=== PATIENT | female | born 1990 | race Caucasian/White ===

== ENCOUNTER 2018-06-05 19:41 | Outpatient (CLI) | payer MEDICAID ==
[2018-06-05 21:12] LABS: ADD MAN DIFF? NO
[2018-06-05 21:14] LABS: WHITE BLOOD COUNT 9.7 10^3/ul (4.8-10.8)
[2018-06-05 21:14] LABS: BASOPHILS % 0.1 % (0.0-2.0); EOSINOPHILS # 0.1 10^3/ul (0.0-0.5); EOSINOPHILS % 1.2 % (0.0-7.0); HEMATOCRIT 33.6 % (37.0-47.0); HEMOGLOBIN 11.5 g/dl (12.0-16.0); LYMPHOCYTES # 2.1 10^3/ul (0.8-2.9); LYMPHOCYTES % 21.5 % (15.0-51.0); MEAN CORPUSCULAR HEMOGLOBIN 29.1 pg (29.0-33.0); MEAN CORPUSCULAR HGB CONC 34.2 g/dl (32.0-37.0); MEAN CORPUSCULAR VOLUME 85.1 fl (82.0-101.0); MEAN PLATELET VOLUME 9.3 fl (7.4-10.4); MONOCYTE # 0.5 10^3/ul (0.3-0.9); MONOCYTES % 5.4 % (0.0-11.0); NEUTROPHIL # 6.9 10^3/ul (1.6-7.5); NEUTROPHILS % 71.2 % (39.0-77.0); PLATELET COUNT 183 10^3/UL (140-415); RED BLOOD COUNT 3.95 10^6/ul (4.20-5.40); RED CELL DISTRIBUTION WIDTH 13.1 % (11.5-14.5)
[2018-06-05] MEDS: LACTATED RINGER'S 1,000 ML IV ×2 (21:41→22:30)
[2018-06-05 21:43] LABS: ADD UMIC YES; UR AMORPHOUS CRYSTAL FEW /HPF (NONE SEEN); UR ASCORBIC ACID NEGATIVE (NEGATIVE); UR BACTERIA FEW /HPF (NONE SEEN); UR BILIRUBIN (Dip) NEGATIVE (NEGATIVE); UR BLOOD (Dip) NEGATIVE (NEGATIVE); UR CLARITY CLOUDY (CLEAR); UR COLOR YELLOW (YELLOW); UR GLUCOSE (Dip) NEGATIVE (NEGATIVE); UR KETONES (Dip) NEGATIVE (NEGATIVE); UR LEUKOCYTE ESTERASE (Dip) 2+ Leu/ul (NEGATIVE); UR MUCUS FEW /HPF (NONE SEEN); UR NITRITE (Dip) NEGATIVE (NEGATIVE); UR RBC 1 /HPF (0-5); UR SPECIFIC GRAVITY (Dip) 1.017 (1.003-1.030); UR SQUAMOUS EPITHELIAL CELL FEW /HPF (FEW); UR TOTAL PROTEIN (Dip) NEGATIVE (NEGATIVE); UR UROBILINOGEN (Dip) NEGATIVE (NEGATIVE); UR WBC 0 /HPF (0-5)
[2018-06-05] MEDS: TERBUTALINE 1 MG/ML INJ SC (21:49)
== END 2018-06-05 23:58 | disposition home or self-care (01) ==
LOC: OBT 19:41 → L-D 19:43
DX: O26.852 Spotting complicating pregnancy, second trimester (principal); Z3A.27 27 weeks gestation of pregnancy
CPT/HCPCS: 36415; 76817; 76818; 81001; 85025; 86850; 86900; 86901; 87086; 96360; 96361

== ENCOUNTER 2018-07-23 21:02 | Inpatient (IN) | payer MEDICAID ==
[2018-07-23] MEDS ORDERED: MAGNESIUM SULFATE 4 GM/100 ML 100 ML (21:49)
[2018-07-23] MEDS ORDERED: TERBUTALINE 1 MG/ML INJ SC (22:00)
[2018-07-23] MEDS ORDERED: METHYLERGONOVINE 0.2 MG INJ IM (22:00)
[2018-07-23] MEDS ORDERED: OXYTOCIN 30 UNITS/LR 500 ML IV ×2 (22:00)
[2018-07-23] MEDS ORDERED: CARBOPROST 250 MCG INJ IM (22:00)
[2018-07-23] MEDS ORDERED: CEFAZOLIN 2 GM/50 ML (PMX) 50 ML IVPB (22:00)
[2018-07-23] MEDS ORDERED: MISOPROSTOL 200 MCG TAB PR (22:00)
[2018-07-23] MEDS: LACTATED RINGER'S 1,000 ML IV (22:08)
[2018-07-23] MEDS: MAGNESIUM SULFATE 4 GM/100 ML 100 ML IVPB (22:13)
[2018-07-23 22:18] LABS: ADD MAN DIFF? NO
[2018-07-23 22:20] LABS: BASOPHILS % 0.2 % (0.0-2.0); EOSINOPHILS # 0.1 10^3/ul (0.0-0.5); EOSINOPHILS % 0.9 % (0.0-7.0); HEMATOCRIT 33.4 % (37.0-47.0); HEMOGLOBIN 11.6 g/dl (12.0-16.0); LYMPHOCYTES % 16.6 % (15.0-51.0); MEAN CORPUSCULAR HEMOGLOBIN 28.9 pg (29.0-33.0); MEAN CORPUSCULAR HGB CONC 34.7 g/dl (32.0-37.0); MEAN CORPUSCULAR VOLUME 83.3 fl (82.0-101.0); MEAN PLATELET VOLUME 10.6 fl (7.4-10.4); MONOCYTE # 0.7 10^3/ul (0.3-0.9); NEUTROPHIL # 9.3 10^3/ul (1.6-7.5); NEUTROPHILS % 75.5 % (39.0-77.0); PLATELET COUNT 160 10^3/UL (140-415); RED BLOOD COUNT 4.01 10^6/ul (4.20-5.40); RED CELL DISTRIBUTION WIDTH 12.7 % (11.5-14.5)
[2018-07-23 22:20] LABS: WHITE BLOOD COUNT 12.3 10^3/ul (4.8-10.8)
[2018-07-23] MEDS: MAGNESIUM SULFATE 20 GM/500 ML 500 ML IV (22:36)
[2018-07-23 22:40] LABS: PROTIME 12.3 Sec (11.9-14.9)
[2018-07-23 22:41] LABS: PARTIAL THROMBOPLASTIN TIME 29.7 Sec (23.0-35.0)
[2018-07-23] MEDS: BETAMET NA PHOS/AC(6 MG/ML) 2 ML INJ SYG IM (23:03)
[2018-07-23 23:58] LABS: AMPHETAMINE/METHAMPHETAMINE Negative (NEGATIVE); BENZODIAZEPINES Negative (NEGATIVE); CANNABINOIDS Negative (NEGATIVE); COCAINE Negative (NEGATIVE); OPIATES Negative (NEGATIVE)
[2018-07-24] MEDS: DEXTROSE 5%-LR 1,000 ML IV ×2 (00:07→12:05)
[2018-07-24 01:00] LABS: BARBITURATES Negative (NEGATIVE)
[2018-07-24] MEDS: MAGNESIUM SULFATE 20 GM/500 ML 500 ML IV ×2 (09:01→18:52)
[2018-07-24 09:47] LABS: MAGNESIUM 4.4 mg/dl (1.7-2.5)
[2018-07-24] MEDS: LACTATED RINGER'S 1,000 ML IV ×2 (11:27→15:53)
[2018-07-24] MEDS: BETAMET NA PHOS/AC(6 MG/ML) 2 ML INJ SYG IM (11:31)
[2018-07-24 14:58] LABS: RAPID PLASMA REAGIN NONREACTIVE (NR)
[2018-07-24 15:18] LABS: MAGNESIUM 5.3 mg/dl (1.7-2.5)
[2018-07-24 19:31] LABS: MAGNESIUM 5.2 mg/dl (1.7-2.5)
[2018-07-25] MEDS: LACTATED RINGER'S 1,000 ML IV ×3 (05:17→22:40)
[2018-07-25] MEDS: MAGNESIUM SULFATE 20 GM/500 ML 500 ML IV (05:18)
[2018-07-25 06:59] LABS: MAGNESIUM 5.1 mg/dl (1.7-2.5)
[2018-07-25 12:12] LABS: MAGNESIUM 4.8 mg/dl (1.7-2.5)
[2018-07-26] MEDS: LACTATED RINGER'S 1,000 ML IV ×4 (06:47→21:20)
[2018-07-26] MEDS: DOCUSATE SODIUM 100 MG CAP PO (09:00)
[2018-07-26] MEDS: PRENATAL VITAMIN PO (11:56)
[2018-07-26] MEDS: FERROUS SULFATE (EC) 325 MG TAB PO (11:56)
[2018-07-26 17:45] LABS: HEPATITIS B SURFACE ANTIGEN NEGATIVE (NEGATIVE)
[2018-07-26] MEDS: MAGNESIUM SULFATE 4 GM/100 ML 100 ML IV (19:00)
[2018-07-27] MEDS: NIFEdipine (XL) 30 MG TAB PO ×4 (00:09→17:59)
[2018-07-27] MEDS: LACTATED RINGER'S 1,000 ML IV ×3 (04:38→22:15)
[2018-07-27] MEDS: DOCUSATE SODIUM 100 MG CAP PO (09:01)
[2018-07-27] MEDS: FERROUS SULFATE (EC) 325 MG TAB PO (09:01)
[2018-07-27] MEDS: PRENATAL VITAMIN PO (09:01)
[2018-07-28] MEDS: NIFEdipine (XL) 30 MG TAB PO ×3 (00:14→12:00)
[2018-07-28] MEDS: LACTATED RINGER'S 1,000 ML IV ×4 (05:52→18:56)
[2018-07-28] MEDS: FERROUS SULFATE (EC) 325 MG TAB PO (09:01)
[2018-07-28] MEDS: PRENATAL VITAMIN PO (09:02)
[2018-07-28] MEDS: DOCUSATE SODIUM 100 MG CAP PO (09:02)
[2018-07-28] MEDS ORDERED: MISOPROSTOL 200 MCG TAB PR ×2 (12:30→18:30)
[2018-07-28] MEDS ORDERED: OXYTOCIN 30 UNITS/LR 500 ML IV ×4 (12:30→18:30)
[2018-07-28] MEDS ORDERED: METHYLERGONOVINE 0.2 MG INJ IM ×2 (12:30→18:30)
[2018-07-28] MEDS ORDERED: CARBOPROST 250 MCG INJ IM ×2 (12:30→18:30)
[2018-07-28 13:29] LABS: ADD MAN DIFF? NO
[2018-07-28 13:31] LABS: WHITE BLOOD COUNT 13.7 10^3/ul (4.8-10.8)
[2018-07-28 13:31] LABS: BASOPHILS % 0.2 % (0.0-2.0); EOSINOPHILS # 0.1 10^3/ul (0.0-0.5); EOSINOPHILS % 0.7 % (0.0-7.0); HEMATOCRIT 37.8 % (37.0-47.0); HEMOGLOBIN 12.8 g/dl (12.0-16.0); LYMPHOCYTES # 2.5 10^3/ul (0.8-2.9); LYMPHOCYTES % 18.2 % (15.0-51.0); MEAN CORPUSCULAR HEMOGLOBIN 28.1 pg (29.0-33.0); MEAN CORPUSCULAR HGB CONC 33.9 g/dl (32.0-37.0); MEAN CORPUSCULAR VOLUME 83.1 fl (82.0-101.0); MEAN PLATELET VOLUME 10.4 fl (7.4-10.4); MONOCYTE # 0.7 10^3/ul (0.3-0.9); MONOCYTES % 5.4 % (0.0-11.0); NEUTROPHIL # 10.2 10^3/ul (1.6-7.5); NEUTROPHILS % 74.2 % (39.0-77.0); NUCLEATED RED BLOOD CELLS% 0.1 /100WBC (0.0-0.0); PLATELET COUNT 184 10^3/UL (140-415); RED BLOOD COUNT 4.55 10^6/ul (4.20-5.40)
[2018-07-28] MEDS ORDERED: ONDANSETRON 4 MG INJ IV ×3 (13:40→16:30)
[2018-07-28 13:44] LABS: PROTIME 12.3 Sec (11.9-14.9)
[2018-07-28 13:45] LABS: PARTIAL THROMBOPLASTIN TIME 28.5 Sec (23.0-35.0)
[2018-07-28] MEDS ORDERED: CITRIC ACID/NA CITRATE 30 ML CUP (14:04)
[2018-07-28] MEDS: METOCLOPRAMIDE 10 MG INJ IV (14:06)
[2018-07-28] MEDS: FAMOTIDINE 20 MG INJ IV (14:06)
[2018-07-28] MEDS: CEFAZOLIN 2 GM/50 ML (PMX) 50 ML IVPB ×2 (14:08→23:55)
[2018-07-28] MEDS: CITRIC ACID/NA CITRATE 30 ML CUP PO (14:18)
[2018-07-28] MEDS ORDERED: morphine SULFATE/PF (10 MG/10 ML) INJ (14:45)
[2018-07-28] MEDS ORDERED: PHENYLephrine (100 MCG/ML) 10ML SYG (15:08)
[2018-07-28] MEDS ORDERED: MIDAZOLAM 1 MG/ML 2 ML INJ (15:28)
[2018-07-28] MEDS ORDERED: KETOROLAC 30 MG INJ IV (15:30)
[2018-07-28] MEDS ORDERED: FENTAnyl 50 MCG/ML VIAL IV ×3 (15:30)
[2018-07-28] MEDS ORDERED: MEPERIDINE 25 MG INJ IV (15:30)
[2018-07-28] MEDS ORDERED: PROCHLORPERAZINE 10 MG INJ IV (15:30)
[2018-07-28] MEDS ORDERED: HYDROmorphONE 1 MG/5 ML IV SYRINGE IV ×3 (15:30)
[2018-07-28] MEDS ORDERED: DIPHENHYDRAMINE 50 MG INJ IV ×2 (15:30→16:30)
[2018-07-28] MEDS ORDERED: KETOROLAC 60 MG INJ IM (15:54)
[2018-07-28] MEDS ORDERED: KETOROLAC 30 MG INJ IM (16:28)
[2018-07-28] MEDS ORDERED: ZOLPIDEM 5 MG TAB PO (16:30)
[2018-07-28] MEDS ORDERED: NALOXONE (0.4 MG/ML) INJ IV (16:30)
[2018-07-28] MEDS ORDERED: HYDROmorphONE 0.5 MG/0.5 ML SYG IV ×2 (16:30)
[2018-07-28] MEDS: KETOROLAC 30 MG INJ IM (18:06)
[2018-07-28] MEDS: AZITHROMYCIN 500MG/NS (PMX) 250 ML IVPB (18:13)
[2018-07-28] MEDS ORDERED: NA PHOSPHATE/BIPHOS 133 ML ENEMA PR (18:30)
[2018-07-28] MEDS: CLINDAMYCIN 300 MG CAP PO (18:30)
[2018-07-28] MEDS: SENNA/DOCUSATE NA (8.6MG/50MG) TAB PO (21:00)
[2018-07-28] MEDS: IBUPROFEN 800 MG TAB PO (22:00)
[2018-07-29] MEDS: CLINDAMYCIN 300 MG CAP PO ×4 (00:50→18:24)
[2018-07-29] MEDS: LACTATED RINGER'S 1,000 ML IV ×3 (04:01→20:00)
[2018-07-29] MEDS: IBUPROFEN 800 MG TAB PO ×3 (06:00→21:55)
[2018-07-29] MEDS: KETOROLAC 30 MG INJ IV ×2 (06:01→12:46)
[2018-07-29] MEDS: CEFAZOLIN 2 GM/50 ML (PMX) 50 ML IVPB ×2 (06:53→14:17)
[2018-07-29 07:57] LABS: ADD MAN DIFF? NO
[2018-07-29 08:03] LABS: WHITE BLOOD COUNT 12.9 10^3/ul (4.8-10.8)
[2018-07-29 08:03] LABS: BASOPHILS % 0.2 % (0.0-2.0); EOSINOPHILS % 0.2 % (0.0-7.0); HEMATOCRIT 32.4 % (37.0-47.0); HEMOGLOBIN 10.9 g/dl (12.0-16.0); LYMPHOCYTES # 1.4 10^3/ul (0.8-2.9); LYMPHOCYTES % 10.9 % (15.0-51.0); MEAN CORPUSCULAR HGB CONC 33.6 g/dl (32.0-37.0); MEAN CORPUSCULAR VOLUME 83.3 fl (82.0-101.0); MEAN PLATELET VOLUME 10.6 fl (7.4-10.4); MONOCYTE # 0.6 10^3/ul (0.3-0.9); MONOCYTES % 4.4 % (0.0-11.0); NEUTROPHIL # 10.8 10^3/ul (1.6-7.5); NEUTROPHILS % 83.7 % (39.0-77.0); PLATELET COUNT 145 10^3/UL (140-415); RED BLOOD COUNT 3.89 10^6/ul (4.20-5.40)
[2018-07-29] MEDS: LANOLIN HPA 1 PKT TOP (09:19)
[2018-07-29] MEDS: SENNA/DOCUSATE NA (8.6MG/50MG) TAB PO ×2 (09:19→21:52)
[2018-07-29] MEDS: HYDROCODONE/APAP (5/325) TAB PO ×2 (16:58→20:40)
[2018-07-29] MEDS: BISACODYL 10 MG SUPP PR ×2 (21:52→22:00)
[2018-07-30] MEDS: CLINDAMYCIN 300 MG CAP PO ×3 (00:34→11:56)
[2018-07-30] MEDS: LACTATED RINGER'S 1,000 ML IV (04:00)
[2018-07-30] MEDS: IBUPROFEN 800 MG TAB PO ×3 (06:53→21:50)
[2018-07-30 07:25] LABS: ADD MAN DIFF? NO
[2018-07-30 07:30] LABS: WHITE BLOOD COUNT 15.6 10^3/ul (4.8-10.8)
[2018-07-30 07:30] LABS: BASOPHILS % 0.1 % (0.0-2.0); EOSINOPHILS # 0.1 10^3/ul (0.0-0.5); EOSINOPHILS % 0.4 % (0.0-7.0); HEMATOCRIT 35.9 % (37.0-47.0); HEMOGLOBIN 12.1 g/dl (12.0-16.0); LYMPHOCYTES # 1.9 10^3/ul (0.8-2.9); LYMPHOCYTES % 12.2 % (15.0-51.0); MEAN CORPUSCULAR HEMOGLOBIN 28.7 pg (29.0-33.0); MEAN CORPUSCULAR HGB CONC 33.7 g/dl (32.0-37.0); MEAN CORPUSCULAR VOLUME 85.3 fl (82.0-101.0); MEAN PLATELET VOLUME 10.1 fl (7.4-10.4); MONOCYTE # 0.8 10^3/ul (0.3-0.9); MONOCYTES % 4.9 % (0.0-11.0); NEUTROPHIL # 12.8 10^3/ul (1.6-7.5); NEUTROPHILS % 81.8 % (39.0-77.0); PLATELET COUNT 174 10^3/UL (140-415); RED BLOOD COUNT 4.21 10^6/ul (4.20-5.40); RED CELL DISTRIBUTION WIDTH 13.3 % (11.5-14.5)
[2018-07-30] MEDS: SENNA/DOCUSATE NA (8.6MG/50MG) TAB PO ×2 (09:05→21:50)
[2018-07-30] MEDS: OXYCODONE/ACETAMINOPHEN (5/325) TAB PO ×2 (11:56→19:40)
[2018-07-30] MEDS: CIPROFLOXACIN 500 MG TAB PO (15:12)
[2018-07-30] MEDS: LANOLIN HPA 1 PKT TOP ×2 (21:50→21:51)
[2018-07-31] MEDS: IBUPROFEN 800 MG TAB PO ×2 (06:03→13:47)
[2018-07-31] MEDS: CIPROFLOXACIN 500 MG TAB PO ×2 (06:03→17:39)
[2018-07-31 08:42] LABS: ADD MAN DIFF? NO
[2018-07-31 08:46] LABS: WHITE BLOOD COUNT 12.6 10^3/ul (4.8-10.8)
[2018-07-31 08:46] LABS: BASOPHILS % 0.2 % (0.0-2.0); EOSINOPHILS # 0.2 10^3/ul (0.0-0.5); EOSINOPHILS % 1.7 % (0.0-7.0); HEMATOCRIT 31.1 % (37.0-47.0); HEMOGLOBIN 10.3 g/dl (12.0-16.0); LYMPHOCYTES # 1.8 10^3/ul (0.8-2.9); LYMPHOCYTES % 14.5 % (15.0-51.0); MEAN CORPUSCULAR HEMOGLOBIN 28.5 pg (29.0-33.0); MEAN CORPUSCULAR HGB CONC 33.1 g/dl (32.0-37.0); MEAN CORPUSCULAR VOLUME 85.9 fl (82.0-101.0); MEAN PLATELET VOLUME 10.2 fl (7.4-10.4); MONOCYTE # 0.6 10^3/ul (0.3-0.9); MONOCYTES % 4.8 % (0.0-11.0); NEUTROPHIL # 9.9 10^3/ul (1.6-7.5); NEUTROPHILS % 78.1 % (39.0-77.0); PLATELET COUNT 173 10^3/UL (140-415); RED BLOOD COUNT 3.62 10^6/ul (4.20-5.40); RED CELL DISTRIBUTION WIDTH 13.2 % (11.5-14.5)
[2018-07-31] MEDS ORDERED: DIPHTH/TET/ACEL PERTUSS (ADULT) 0.5 ML VIAL IM* (09:00)
[2018-07-31] MEDS: SENNA/DOCUSATE NA (8.6MG/50MG) TAB PO (09:00)
[2018-07-31] MEDS: MEASLES,MUMPS,RUBELLA VACCINE INJ SC* (09:47)
[2018-07-31] MEDS: LANOLIN HPA 1 PKT TOP (13:47)
[2018-07-31] MEDS: ACETAMINOPHEN 325 MG TAB PO (14:36)
[2018-07-31] MEDS: BACITRACIN 0.5%/ZINC 28.35 GM OINT TOP (14:45)
== END 2018-07-31 18:54 | disposition home or self-care (01) | DRG 786 ==
LOC: OBT 21:02 → PP1 07-26 22:29 → L-D 07-28 13:58 → OBT 21:38 → L-D 07-28 15:01 → PP1 07-28 18:18
PROVIDERS: Obstetrics & Gynecology
PROC: 10D00Z1 Extraction of Products of Conception, Low, Open Approach (ICD-10-PCS; principal; 2018-07-28 15:00)
DX: O60.14X0 Preterm labor third trimester with preterm delivery third trimester, not applicable or unspecified (principal); O45.93 Premature separation of placenta, unspecified, third trimester; Z3A.35 35 weeks gestation of pregnancy; Z37.0 Single live birth
CPT/HCPCS: 76815; 76818; 80307; 83735; 85025; 85460; 85610; 85730; 86592; 86850; 86900; 86901; 86920; 87340; 88307; 99464